=== PATIENT | male | born 1945 | race Caucasian/White ===

== ENCOUNTER 2019-05-21 20:29 | Emergency (ER) | payer MEDICARE, BC ==
[~2019-05-21] VITALS: Ht 182.9 cm; Wt 74.1 kg
[~2019-05-21 20:29] MED LIST: MUPI15CR TOP
[2019-05-21] MEDS ORDERED: CefTRIAXone 2gm/D5W 50ml 50 ML IV ONE (20:45)
[2019-05-21 20:56] LABS: BASOPHILS # (AUTO) 0.1 X10'3 (0-0.2); BASOPHILS % (AUTO) 0.8 % (0-1); EOSINOPHILS # (AUTO) 0.7 X10'3 (0-0.9); EOSINOPHILS % (AUTO) 5.8 % (0-6); HEMATOCRIT 29.3 % (42.0-52.0); HEMOGLOBIN 10.1 g/dl (14.0-17.9); LYMPHOCYTES # (AUTO) 1.4 X10'3 (1.1-4.8); MEAN CORPUSCULAR HEMOGLOBIN 30.9 PG (27.0-31.0); MEAN CORPUSCULAR HGB CONC 34.4 g/dL (33.0-36.5); MEAN CORPUSCULAR VOLUME 89.7 FL (78-98); MEAN PLATELET VOLUME 8.7 FL (7.4-10.4); MONOCYTES # (AUTO) 1.2 X10'3 (0-0.9); MONOCYTES % (AUTO) 9.8 % (2-12); NEUTROPHILS % (AUTO) 72.6 % (42-75); PLATELET COUNT 125 X10'3 (140-440); RED BLOOD COUNT 3.27 X10'6 (4.70-6.10); RED CELL DISTRIBUTION WIDTH 13.5 % (11.5-14.5); WHITE BLOOD COUNT 12.4 X10'3 (4.5-11.0)
[2019-05-21 21:25] LABS: ALANINE AMINOTRANSFERASE 14 U/L (12-78); ALBUMIN/GLOBULIN RATIO 0.8 (1.1-1.5); ALKALINE PHOSPHATASE 84 IU/L (46-116); ANION GAP 10 (8-16); ASPARTATE AMINO TRANSFERASE 27 U/L (10-37); BILIRUBIN,TOTAL 0.5 MG/DL (0.1-1.0); BLOOD UREA NITROGEN 31 MG/DL (7-18); BUN/CREATININE RATIO 30.4 (5.4-32.0); CALCIUM 9.1 MG/DL (8.5-10.1); CHLORIDE 107 MMOL/L (99-107); CREATININE 1.02 MG/DL (0.60-1.10); GLUCOSE 96 MG/DL (70-104); POTASSIUM 3.8 MMOL/L (3.5-5.1); SODIUM 143 MMOL/L (135-145); TOTAL CARBON DIOXIDE 25.7 MMOL/L (24-32); TOTAL PROTEIN 6.8 G/DL (6.4-8.2); eGFR 71 ML/MIN
[2019-05-21 21:28] LABS: LIPASE 79 U/L (73-393)
[2019-05-21 21:33] LABS: CLARITY,URINE CLEAR (Clear); COLOR,URINE AMBER (Yellow); GLUCOSE, URINE NEGATIVE (Neg); KETONES,URINE TRACE mg/dl (Neg); LEUKOCYTE ESTERASE ,URINE NEGATIVE (Neg); NITRITES, URINE NEGATIVE (Neg); OCCULT BLOOD,URINE NEGATIVE (Neg); PH,URINE 5.5 (4.8-8.0); PROTEIN,URINE NEGATIVE (Neg)
[2019-05-21 21:41] LABS: ETHANOL < 0.010 GM/DL (0.0-0.010)
[2019-05-21 21:42] LABS: URINE AMPHETAMINE SCREEN NEGATIVE (Neg); URINE BARBITUATE SCREEN NEGATIVE (Neg); URINE BENZODIAZEPINES SCREEN NEGATIVE (Neg); URINE CANNABINOID SCREEN NEGATIVE (Neg); URINE COCAINE SCREEN NEGATIVE (Neg); URINE METHADONE SCREEN NEGATIVE (Neg); URINE OPIATE SCREEN POSITIVE (Neg); URINE PHENCYCLIDINE SCREEN NEGATIVE (Neg)
[2019-05-21 21:46] LABS: UA COLLECTION TYPE CLN CATCH MIDSTREAM
--- NOTE | 2019-05-21 22:28 | NUR ---
WHILE PERFORMING ENEMA, RN NOTICED LEFT SIDED WEAKNESS AND SLIGHT FACIAL DROOP. ASKED AND DAUGHTER AT BEDSIDE WELL PT WHEN THIS WEAKNESS OCCURRED, THEY SAID LAST FEW DAYS. RICA GARDINER NOTIFIED AND RICA PERFORMED STROKE ASSESSMENT, CT HEAD ORDERED.
[2019-05-21] MEDS ORDERED: dexamethasone sod phosphate 10mg/ml inj IV STA (23:15)
[2019-05-21] MEDS ORDERED: Levetiracetam-NS 500mg/100ml 100 ML IV ONE (23:18)
[2019-05-22 02:20] VITALS: BP 113/71
== END 2019-05-22 02:22 | disposition short-term general hospital (02) ==
LOC: ER 20:29
DX: S32.028A Other fracture of second lumbar vertebra, initial encounter for closed fracture (principal); S22.088A Other fracture of T11-T12 vertebra, initial encounter for closed fracture; R91.8 Other nonspecific abnormal finding of lung field; G93.89 Other specified disorders of brain; F17.200 Nicotine dependence, unspecified, uncomplicated; R10.84 Generalized abdominal pain; I48.91 Unspecified atrial fibrillation; J44.9 Chronic obstructive pulmonary disease, unspecified; G89.29 Other chronic pain; W18.30XA Fall on same level, unspecified, initial encounter; Y93.89 Activity, other specified; Y92.89 Other specified places as the place of occurrence of the external cause; Y99.9 Unspecified external cause status
CPT/HCPCS: 36415; 70450; 71250; 74176; 80053; 80305; 80320; 81003; 83605; 83690; 83880; 84145; 84484; 85025; 87040; 87077; 87186; 93005; 96365; 96367; 96375; 99285; J0696; J1100; J1953